=== PATIENT | female | born 1990 | race Caucasian/White ===

== ENCOUNTER 2024-03-26 08:42 | Outpatient (AMB) | payer OTHER, SELFPAY ==
--- NOTE | 2024-03-26 08:44 | AM.OFFWIN_ITS ---
Intake Vital Signs 03/26/24 08:45 Height 5 ft 7 in Weight 197 lb BMI 30.9 BP 120/78 Blood Pressure Location Lt brachial Position Sitting Pulse 75 Pulse Source Pulse Oximeter Temp 97.5 F Temp Source Temporal Artery Scan Pulse Oximetry (%) 97 Oxygen Delivery Method Room Air Intake Visit Reasons: [employer] throat, ears Intake Note: pt is here today for throat and ear started 5 days ago Patient Tobacco Use Status: Never used Tobacco Allergies No Known Allergies Allergy (Unverified 03/26/24 08:47) Do you need a note to return to daycare/school/sports/work: No HPI HPI Comments History of Present Illness Details Patient is a 34-year-old female with no significant past medical history complaining of 5 days of a sore throat, pain with swallowing, and intermittent dry cough and fullness in her bilateral ears. She denies any fevers, shortness of breath, reduced hearing, sinus pain, nausea, vomiting or diarrhea. She denies any sick contacts. She is able to eat and drink normally, albeit with some pain. She has not tried any medications to make it feel better, nothing seems to make it better or worse. [facility] Social History Patient Tobacco Use Status: Never used Tobacco Review of Systems Const All systems reviewed & are unremarkable except as noted in HPI and below Physical Exam Vital Signs: Last Vital Signs Temp 97.5 F 03/26/24 08:45 Pulse 75 03/26/24 08:45 BP 120/78 03/26/24 08:45 Pulse Ox 97 03/26/24 08:45 Oxygen Delivery Method Room Air 03/26/24 08:45 BMI result Body Mass Index 30.9 Const General: cooperative, healthy appearing, comfortable and no acute distress Orientation/consciousness: patient oriented x3 Limitations: no limitations HEENT Head: Yes normal to inspection Ears: external ears normal and TM's normal bilaterally General nose exam: Normal external nose present, Normal nares present and No nasal discharge present Face and sinus: Yes normal facial exam and Yes sinuses nontender Mouth: Normal oral and palatal mucosa present and moist mucous membranes Throat: Yes tonsils normal, Yes uvula midline and Yes posterior oropharynx abnormal (Erythema) Eyes General: appearance normal, both eyes and all related structures Neck Neck: Yes normal visual inspection Resp Effort & Inspection: normal respiratory effort, able to speak in complete sentences, Actively coughing, no respiratory distress, not tachypneic, no tripod positioning and no use of accessory muscles Auscultation: clear to auscultation bilaterally Cardio Rate: regular rate Rhythm: regular rhythm Heart sounds: normal S1 and S2 Skin General skin exam: no rashes or lesions noted Neuro General: patient oriented x3 Extrem General: Yes normal to inspection and Yes no clubbing, cyanosis or edema Results AMB Rapid Strep AMB Rapid Strep Negative Last Edit by CYNTHIA Bruce on 03/26/24 09:0 7 Assessment & Plan Assessment & Plan (1) Seasonal allergic reaction: Code(s): J30.2 - Other seasonal allergic rhinitis Plan: Advised taking an allergy pill daily, add Flonase if needed. If no resolution, follow-up with your PCP. Plan see above Orders: Orders AMB Rapid Strep Screen Today Z13.9 - Encounter for screening, unspecified Coding Level of Care Code New Pt Level 3 (16968) Diagnoses Seasonal allergic reaction J30.2
[2024-03-26 08:45] VITALS: BP 120/78; PULSE 75; TEMP 36.4; O2SAT 97; BMI 30.9
== END 2024-03-26 10:16 | disposition home or self-care (01) ==
PROVIDERS: PCP Internal Medicine; Visit Provider Physician Assistant
DX: J02.9 Acute pharyngitis, unspecified (principal)
CPT/HCPCS: 87880; 99203